=== PATIENT | male | born 1955 | race African-American/Black ===

== ENCOUNTER 2021-09-17 11:43 | Inpatient (IN) ==
[2021-09-17] MEDS ORDERED: methylPREDNISolone SOD SUC 125 MG/2 ML VIAL IV STA (12:28)
[2021-09-17] MEDS ORDERED: ALBUTEROL NEB SOLN 5 MG/ML 20 ML/BOTTLE CONT NEB SCH (12:30)
[2021-09-17 13:05] LABS: Albumin 3.8 G/DL (3.4-5.0); Basophils % 0.3 % (0.0-0.8); Calcium 9.8 MG/DL (8.5-10.1); Eosinophils # 0.2 10*3/uL (0.0-0.87); Eosinophils % 2.5 % (0.00-10.9); Hematocrit 43.7 VOL% (42.0-52.0); Hemoglobin 12.1 GM/DL (14.0-18.0); Immature Granulocytes % 0.4 %; Immature Granulocytes Absolute 0.04 #; Lymphocytes % 21.5 % (21.2-54.2); Mean Corpuscular HGB Conc 27.7 GM/DL (32-36); Mean Corpuscular Volume 85.7 FL (87-102); Mean Platelet Volume 11.5 FL (9.6-12.0); Monocytes # 0.9 10*3/uL (0.11-0.8); Neutrophils % 65.3 % (38.7-73.9); Platelet Count 283 T/CUMM (130-400); Potassium 4.7 MMOL/L (3.5-5.1); Red Cell Distribution Width 13.9 % (9.3-17.3); Total Protein 8.1 G/DL (6.4-8.2); White Blood Count 9.2 T/CUMM (4-12)
[2021-09-17 13:13] LABS: Hypochromia Slight
[2021-09-17 13:14] LABS: Ovalocytes Slight; Platelet Estimate Normal
[2021-09-17] MEDS ORDERED: ACETAMINOPHEN 325 MG TABLET PO PRN (13:29)
[2021-09-17] MEDS ORDERED: GLUCAGON 1 MG VIAL IM PRN (13:29)
[2021-09-17] MEDS ORDERED: ONDANSETRON 4 MG/2 ML VIAL IV PRN (13:29)
[2021-09-17] MEDS ORDERED: ALBUTEROL 1.25 MG/3 ML NEB RESP TX PRN (13:34)
[2021-09-17] MEDS ORDERED: DEXTROSE 10% 250 ML BAG IV PRN (13:37)
[2021-09-17] MEDS: PANTOPRAZOLE 40 MG TABLET PO SCH (15:20)
[2021-09-17] MEDS: guaiFENesin/DM ER 600-30 MG TABLET PO SCH ×2 (15:20→20:53)
[2021-09-17] MEDS: LEVOFLOXACIN INJ 750 MG/150 ML PREMIX IV SCH (15:22)
[2021-09-17] MEDS: NICOTINE 21 MG/24 HR PATCH TRANSDERM SCH (15:36)
[2021-09-17] MEDS: ALBUTEROL/IPRATROPIUM 3 ML NEB RESP TX SCH (19:25)
[2021-09-17] MEDS: methylPREDNISolone SOD SUC 40 MG/1 ML VIAL IV SCH (20:50)
[2021-09-17] MEDS: buPROPion SR 150 MG TABLET PO SCH (20:53)
[2021-09-17] MEDS: ENOXAPARIN 40 MG/0.4 ML SYRINGE SUBCUT SCH (20:53)
[2021-09-18] MEDS: ALBUTEROL/IPRATROPIUM 3 ML NEB RESP TX SCH ×4 (01:47→18:55)
[2021-09-18 06:43] LABS: Albumin 3.3 G/DL (3.4-5.0); Calcium 9.7 MG/DL (8.5-10.1); Osmolality,Calculated 278.4 MOS/KG (273-304); Total Protein 7.6 G/DL (6.4-8.2)
[2021-09-18 06:49] LABS: Basophils % 0.1 % (0.0-0.8); Hematocrit 40.1 VOL% (42.0-52.0); Hemoglobin 11.4 GM/DL (14.0-18.0); Immature Granulocytes % 0.5 %; Immature Granulocytes Absolute 0.06 #; Lymphocytes # 0.8 10*3/uL (1.4-4.0); Lymphocytes % 6.7 % (21.2-54.2); Mean Corpuscular HGB Conc 28.4 GM/DL (32-36); Mean Corpuscular Volume 83.2 FL (87-102); Mean Platelet Volume 12.3 FL (9.6-12.0); Monocytes # 0.2 10*3/uL (0.11-0.8); Monocytes % 1.3 % (1.7-12.7); Neutrophils % 91.4 % (38.7-73.9); Platelet Count 253 T/CUMM (130-400); Red Blood Count 4.82 MC/CUMM (3.8-5.5); Red Cell Distribution Width 13.6 % (9.3-17.3); White Blood Count 11.3 T/CUMM (4-12)
[2021-09-18 06:54] LABS: Band Neutrophils 9 % (0-10); Lymphocytes 6 % (20-55); Macrocytosis Slight; Platelet Estimate Normal; Total Cells Counted 100
[2021-09-18] MEDS: buPROPion SR 150 MG TABLET PO SCH ×2 (09:51→20:46)
[2021-09-18] MEDS: methylPREDNISolone SOD SUC 40 MG/1 ML VIAL IV SCH ×2 (09:51→20:49)
[2021-09-18] MEDS: guaiFENesin/DM ER 600-30 MG TABLET PO SCH ×2 (09:51→20:46)
[2021-09-18] MEDS: PANTOPRAZOLE 40 MG TABLET PO SCH (09:51)
[2021-09-18] MEDS: NICOTINE 21 MG/24 HR PATCH TRANSDERM SCH (09:55)
[2021-09-18] MEDS: LEVOFLOXACIN INJ 750 MG/150 ML PREMIX IV SCH (14:01)
[2021-09-18] MEDS: ENOXAPARIN 40 MG/0.4 ML SYRINGE SUBCUT SCH (20:46)
[2021-09-19] MEDS: ALBUTEROL/IPRATROPIUM 3 ML NEB RESP TX SCH ×5 (00:20→23:48)
[2021-09-19] MEDS: guaiFENesin/DM ER 600-30 MG TABLET PO SCH ×2 (08:21→20:37)
[2021-09-19] MEDS: buPROPion SR 150 MG TABLET PO SCH ×2 (08:22→20:37)
[2021-09-19] MEDS: NICOTINE 21 MG/24 HR PATCH TRANSDERM SCH (08:22)
[2021-09-19] MEDS: PANTOPRAZOLE 40 MG TABLET PO SCH (08:22)
[2021-09-19] MEDS: methylPREDNISolone SOD SUC 40 MG/1 ML VIAL IV SCH ×2 (08:23→20:37)
[2021-09-19] MEDS ORDERED: ALBUTEROL 2.5 MG/3 ML NEB RESP TX ONE (12:15)
[2021-09-19] MEDS ORDERED: methylPREDNISolone SOD SUC 40 MG/1 ML VIAL IV SCH (12:41)
[2021-09-19] MEDS: LEVOFLOXACIN INJ 750 MG/150 ML PREMIX IV SCH (13:06)
[2021-09-19 13:11] LABS: Arterial Base Excess iSTAT 6 MMOL/L (-2.5-2.5); Arterial Bicarbonate iSTAT 34.8 MMOL/L (20-26); Arterial O2 Saturation iSTAT 87 % (95-100); Arterial PCO2 iSTAT 72 MM HG (35-48); Arterial PO2 iSTAT 61 MM HG (80-95); Arterial Total CO2 iSTAT 37 MMO/L (23-27); Arterial pH iSTAT 7.295 (7.35-7.45)
[2021-09-19 13:11] LABS: Arterial Base Excess iSTAT 5 MMOL/L (-2.5-2.5); Arterial Bicarbonate iSTAT 34.3 MMOL/L (20-26); Arterial O2 Saturation iSTAT 85 % (95-100); Arterial PCO2 iSTAT 72 MM HG (35-48); Arterial PO2 iSTAT 58 MM HG (80-95); Arterial Total CO2 iSTAT 36 MMO/L (23-27); Arterial pH iSTAT 7.289 (7.35-7.45)
[2021-09-19] MEDS: BUDESONIDE 0.5 MG/2 ML NEB RESP TX SCH (19:34)
[2021-09-19] MEDS: ENOXAPARIN 40 MG/0.4 ML SYRINGE SUBCUT SCH (20:37)
[2021-09-20] MEDS: methylPREDNISolone SOD SUC 40 MG/1 ML VIAL IV SCH ×4 (03:31→20:13)
[2021-09-20 03:32] LABS: Arterial Base Excess iSTAT 12 MMOL/L (-2.5-2.5); Arterial Bicarbonate iSTAT 31.9 MMOL/L (20-26); Arterial O2 Saturation iSTAT 100 % (95-100); Arterial PCO2 iSTAT 26 MM HG (35-48); Arterial PO2 iSTAT 176 MM HG (80-95); Arterial Total CO2 iSTAT 33 MMO/L (23-27); Arterial pH iSTAT 7.691 (7.35-7.45)
[2021-09-20] MEDS: CLORAZEPATE 3.75 MG TABLET PO PRN ×2 (04:28→13:05)
[2021-09-20 06:02] LABS: ABG Base Excess 6.4 MMOL/L (-2.5-2.5); ABG Oxygen Saturation 86.7 % (95-100); ABG PCO2 64.7 MM HG (35-48); ABG PH 7.332 (7.35-7.45); ABG PO2 58.6 MM HG (80-95); ABG TCO2 31.2 MMOL/L (23-27)
[2021-09-20 06:03] LABS: Albumin 3.8 G/DL (3.4-5.0); Bilirubin,Total 1.5 MG/DL (0.20-1.00); Calcium 9.8 MG/DL (8.5-10.1); Osmolality,Calculated 255.2 MOS/KG (273-304); Total Protein 8.2 G/DL (6.4-8.2)
[2021-09-20 06:22] LABS: Basophils % 0.1 % (0.0-0.8); Immature Granulocytes % 0.5 %; Immature Granulocytes Absolute 0.06 #; Lymphocytes # 0.8 10*3/uL (1.4-4.0); Lymphocytes % 6.3 % (21.2-54.2); Mean Corpuscular HGB Conc 29.6 GM/DL (32-36); Mean Corpuscular Volume 80.7 FL (87-102); Monocytes # 0.6 10*3/uL (0.11-0.8); Monocytes % 4.8 % (1.7-12.7); Neutrophils % 88.3 % (38.7-73.9); Platelet Count 186 T/CUMM (130-400); Red Blood Count 4.61 MC/CUMM (3.8-5.5); Red Cell Distribution Width 13.6 % (9.3-17.3); White Blood Count 12.8 T/CUMM (4-12)
[2021-09-20 06:27] LABS: Hematocrit 37.2 VOL% (42.0-52.0)
[2021-09-20] MEDS: ALBUTEROL/IPRATROPIUM 3 ML NEB RESP TX SCH ×3 (07:02→19:43)
[2021-09-20] MEDS: BUDESONIDE 0.5 MG/2 ML NEB RESP TX SCH ×2 (07:02→19:43)
[2021-09-20 07:15] LABS: Arterial Base Excess iSTAT 9 MMOL/L (-2.5-2.5); Arterial Bicarbonate iSTAT 36.4 MMOL/L (20-26); Arterial O2 Saturation iSTAT 92 % (95-100); Arterial PCO2 iSTAT 63 MM HG (35-48); Arterial PO2 iSTAT 70 MM HG (80-95); Arterial Total CO2 iSTAT 38 MMO/L (23-27); Arterial pH iSTAT 7.371 (7.35-7.45)
[2021-09-20] MEDS: guaiFENesin/DM ER 600-30 MG TABLET PO SCH ×2 (09:31→20:10)
[2021-09-20] MEDS: PANTOPRAZOLE 40 MG TABLET PO SCH (09:31)
[2021-09-20] MEDS: buPROPion SR 150 MG TABLET PO SCH ×2 (09:31→20:13)
[2021-09-20] MEDS: NICOTINE 21 MG/24 HR PATCH TRANSDERM SCH (09:32)
[2021-09-20] MEDS: LEVOFLOXACIN INJ 750 MG/150 ML PREMIX IV SCH (13:05)
[2021-09-20] MEDS ORDERED: chlordiazePOXIDE 25 MG CAPSULE PO PRN (14:05)
[2021-09-20] MEDS: chlordiazePOXIDE 25 MG CAPSULE PO SCH (20:09)
[2021-09-20] MEDS: ENOXAPARIN 40 MG/0.4 ML SYRINGE SUBCUT SCH (20:10)
[2021-09-21] MEDS: ALBUTEROL/IPRATROPIUM 3 ML NEB RESP TX SCH ×4 (00:25→20:00)
[2021-09-21] MEDS: methylPREDNISolone SOD SUC 40 MG/1 ML VIAL IV SCH ×4 (02:23→20:53)
[2021-09-21 06:03] LABS: Albumin 3.9 G/DL (3.4-5.0); Bilirubin,Total 1.4 MG/DL (0.20-1.00); Calcium 9.6 MG/DL (8.5-10.1); Osmolality,Calculated 254.4 MOS/KG (273-304); Potassium 4.5 MMOL/L (3.5-5.1); Total Protein 7.8 G/DL (6.4-8.2)
[2021-09-21 06:23] LABS: Hematocrit 37.3 VOL% (42.0-52.0); Immature Granulocytes % 0.7 %; Immature Granulocytes Absolute 0.08 #; Lymphocytes # 0.4 10*3/uL (1.4-4.0); Lymphocytes % 3.7 % (21.2-54.2); Mean Corpuscular HGB Conc 29.5 GM/DL (32-36); Mean Corpuscular Volume 80.4 FL (87-102); Mean Platelet Volume 11.7 FL (9.6-12.0); Monocytes # 0.6 10*3/uL (0.11-0.8); Monocytes % 5.3 % (1.7-12.7); Neutrophils % 90.3 % (38.7-73.9); Platelet Count 264 T/CUMM (130-400); Red Blood Count 4.64 MC/CUMM (3.8-5.5); Red Cell Distribution Width 13.3 % (9.3-17.3); White Blood Count 11.3 T/CUMM (4-12)
[2021-09-21 06:25] LABS: Lymphocytes 1 % (20-55); Platelet Estimate Normal; Total Cells Counted 100
[2021-09-21] MEDS: BUDESONIDE 0.5 MG/2 ML NEB RESP TX SCH ×2 (07:44→20:00)
[2021-09-21] MEDS ORDERED: THIAMINE 200 MG/2 ML VIAL IV ONE (08:30)
[2021-09-21] MEDS: METOPROLOL TARTRATE 25 MG TABLET PO SCH ×2 (09:41→20:54)
[2021-09-21] MEDS: NICOTINE 21 MG/24 HR PATCH TRANSDERM SCH (09:41)
[2021-09-21] MEDS: MULTIVITAMIN (CENTRUM) TABLET PO SCH (09:42)
[2021-09-21] MEDS: buPROPion SR 150 MG TABLET PO SCH ×2 (09:42→20:54)
[2021-09-21] MEDS: FOLIC ACID 1 MG TABLET PO SCH (09:42)
[2021-09-21] MEDS: guaiFENesin/DM ER 600-30 MG TABLET PO SCH ×2 (09:42→20:55)
[2021-09-21] MEDS: PANTOPRAZOLE 40 MG TABLET PO SCH (09:42)
[2021-09-21] MEDS: chlordiazePOXIDE 25 MG CAPSULE PO SCH ×3 (09:57→20:54)
[2021-09-21] MEDS ORDERED: BISACODYL 10 MG SUPP RECTAL PRN (12:44)
[2021-09-21] MEDS ORDERED: BISACODYL 10 MG SUPP RECTAL ONE (12:44)
[2021-09-21] MEDS: LEVOFLOXACIN INJ 750 MG/150 ML PREMIX IV SCH (13:49)
[2021-09-21] MEDS: POLYETHYLENE GLYCOL POWDER 17 GM PACK PO PRN (14:05)
[2021-09-21] MEDS: SODIUM CHLORIDE 1 GM TABLET PO SCH ×2 (14:05→20:54)
[2021-09-21 19:33] LABS: Glucose,Urine (UA) Negative (Negative); Ketones,Urine Negative (Negative); Nitrite,Urine Negative (Negative); Protein,Urine Negative (Negative); Urine Appearance Slightly Cloudy (Clear); Urine Color Dark Yellow (Yellow)
[2021-09-21 19:34] LABS: Bilirubin,Urine Negative (Negative); Blood, Urine Negative (Negative)
[2021-09-21 19:35] LABS: Mucus,Urine Occasional /LPF (Occasional); Sperm,Urine Occasional /HPF (Negative); Squamous Epithelial Cell,Urine Occasional /HPF (0-10)
[2021-09-21] MEDS: ENOXAPARIN 40 MG/0.4 ML SYRINGE SUBCUT SCH (20:53)
[2021-09-21] MEDS: TAMSULOSIN 0.4 MG CAPSULE PO SCH (20:54)
[2021-09-22] MEDS: ALBUTEROL/IPRATROPIUM 3 ML NEB RESP TX SCH ×4 (00:25→19:12)
[2021-09-22] MEDS: methylPREDNISolone SOD SUC 40 MG/1 ML VIAL IV SCH ×3 (02:33→15:25)
[2021-09-22 04:53] LABS: Hematocrit 37.6 VOL% (42.0-52.0); Hemoglobin 11.2 GM/DL (14.0-18.0); Immature Granulocytes % 0.4 %; Immature Granulocytes Absolute 0.05 #; Lymphocytes # 0.5 10*3/uL (1.4-4.0); Mean Corpuscular HGB Conc 29.8 GM/DL (32-36); Mean Corpuscular Volume 80.7 FL (87-102); Mean Platelet Volume 11.7 FL (9.6-12.0); Monocytes # 0.9 10*3/uL (0.11-0.8); Monocytes % 7.3 % (1.7-12.7); Neutrophils % 88.3 % (38.7-73.9); Platelet Count 258 T/CUMM (130-400); Red Blood Count 4.66 MC/CUMM (3.8-5.5); Red Cell Distribution Width 13.2 % (9.3-17.3); White Blood Count 11.6 T/CUMM (4-12)
[2021-09-22 05:14] LABS: Albumin 3.6 G/DL (3.4-5.0); Calcium 9.5 MG/DL (8.5-10.1); Osmolality,Calculated 264.7 MOS/KG (273-304); Potassium 4.4 MMOL/L (3.5-5.1); Total Protein 7.1 G/DL (6.4-8.2)
[2021-09-22 05:17] LABS: Lymphocytes 2 % (20-55); Myelocytes 1 %; Platelet Estimate Normal; Total Cells Counted 100
[2021-09-22 05:19] LABS: Hypochromia 2+
[2021-09-22] MEDS: BUDESONIDE 0.5 MG/2 ML NEB RESP TX SCH ×2 (06:48→19:12)
[2021-09-22] MEDS: METOPROLOL TARTRATE 25 MG TABLET PO SCH ×2 (08:43→22:04)
[2021-09-22] MEDS: DOCUSATE SODIUM 100 MG CAPSULE PO PRN (08:43)
[2021-09-22] MEDS: POLYETHYLENE GLYCOL POWDER 17 GM PACK PO PRN (08:43)
[2021-09-22] MEDS: guaiFENesin/DM ER 600-30 MG TABLET PO SCH ×2 (08:43→22:04)
[2021-09-22] MEDS: buPROPion SR 150 MG TABLET PO SCH ×2 (08:43→22:04)
[2021-09-22] MEDS: NICOTINE 21 MG/24 HR PATCH TRANSDERM SCH (08:44)
[2021-09-22] MEDS: chlordiazePOXIDE 25 MG CAPSULE PO SCH ×3 (08:44→22:04)
[2021-09-22] MEDS: SODIUM CHLORIDE 1 GM TABLET PO SCH ×2 (08:44→15:22)
[2021-09-22] MEDS: THIAMINE 100 MG TABLET PO SCH (08:44)
[2021-09-22] MEDS: FOLIC ACID 1 MG TABLET PO SCH (08:44)
[2021-09-22] MEDS: PANTOPRAZOLE 40 MG TABLET PO SCH (08:44)
[2021-09-22] MEDS: MULTIVITAMIN (CENTRUM) TABLET PO SCH (08:45)
[2021-09-22] MEDS: ROFLUMILAST 500 MCG TABLET PO SCH (11:34)
[2021-09-22] MEDS: LEVOFLOXACIN INJ 750 MG/150 ML PREMIX IV SCH (12:39)
[2021-09-22] MEDS: ENOXAPARIN 40 MG/0.4 ML SYRINGE SUBCUT SCH (22:04)
[2021-09-22] MEDS: TAMSULOSIN 0.4 MG CAPSULE PO SCH (22:04)
[2021-09-23] MEDS: methylPREDNISolone SOD SUC 40 MG/1 ML VIAL IV SCH ×2 (00:04→11:06)
[2021-09-23 06:06] LABS: Albumin 3.3 G/DL (3.4-5.0); Calcium 9.3 MG/DL (8.5-10.1); Osmolality,Calculated 267.4 MOS/KG (273-304); Potassium 4.5 MMOL/L (3.5-5.1); Total Protein 6.6 G/DL (6.4-8.2)
[2021-09-23 06:06] LABS: Hematocrit 38.1 VOL% (42.0-52.0); Hemoglobin 11.2 GM/DL (14.0-18.0); Immature Granulocytes % 0.7 %; Immature Granulocytes Absolute 0.09 #; Lymphocytes # 0.6 10*3/uL (1.4-4.0); Lymphocytes % 4.4 % (21.2-54.2); Mean Corpuscular HGB Conc 29.4 GM/DL (32-36); Mean Corpuscular Volume 80.7 FL (87-102); Monocytes # 0.8 10*3/uL (0.11-0.8); Monocytes % 6.3 % (1.7-12.7); Neutrophils % 88.6 % (38.7-73.9); Platelet Count 257 T/CUMM (130-400); Red Blood Count 4.72 MC/CUMM (3.8-5.5); Red Cell Distribution Width 13.2 % (9.3-17.3); White Blood Count 12.9 T/CUMM (4-12)
[2021-09-23 06:12] LABS: Lymphocytes 1 % (20-55); Platelet Estimate Adequate; Total Cells Counted 100
[2021-09-23] MEDS: BUDESONIDE 0.5 MG/2 ML NEB RESP TX SCH (07:25)
[2021-09-23] MEDS: ALBUTEROL/IPRATROPIUM 3 ML NEB RESP TX SCH ×2 (07:25)
[2021-09-23] MEDS: guaiFENesin/DM ER 600-30 MG TABLET PO SCH (11:05)
[2021-09-23] MEDS: DOCUSATE SODIUM 100 MG CAPSULE PO PRN (11:05)
[2021-09-23] MEDS: chlordiazePOXIDE 25 MG CAPSULE PO SCH (11:05)
[2021-09-23] MEDS: FOLIC ACID 1 MG TABLET PO SCH (11:05)
[2021-09-23] MEDS: buPROPion SR 150 MG TABLET PO SCH (11:05)
[2021-09-23] MEDS: THIAMINE 100 MG TABLET PO SCH (11:05)
[2021-09-23] MEDS: METOPROLOL TARTRATE 25 MG TABLET PO SCH (11:05)
[2021-09-23] MEDS: MULTIVITAMIN (CENTRUM) TABLET PO SCH (11:05)
[2021-09-23] MEDS: PANTOPRAZOLE 40 MG TABLET PO SCH (11:05)
[2021-09-23] MEDS: ROFLUMILAST 500 MCG TABLET PO SCH (11:06)
[2021-09-23] MEDS: NICOTINE 21 MG/24 HR PATCH TRANSDERM SCH (11:06)
[2021-09-23 12:27] VITALS: BP 98/67
== END 2021-09-23 13:18 | disposition home or self-care (01) | DRG 189 ==
LOC: EDUNIT# → EDBD → N.ED 11:43 → N.TELES 11:43 → SUATTDRO 13:25 → N.TELES 16:41 → SUATTDRO 09-19 13:27
PROVIDERS: ADMIT Hospitalist; ATTEND Internal Medicine